=== PATIENT | female | born 1970 | race Caucasian/White ===

== ENCOUNTER 2021-10-06 18:55 | Emergency (ER) | payer MEDICARE, OTHER ==
[~2021-10-06 18:55] MED LIST: ALDACTONE100 MG PO; GLUCOTROL 10 MG10 MG PO; KEPPRA 500 MG500 MG PO; PROZAC20 MG PO; TRAZODONE HCL100 MG PO
[2021-10-06 21:26] LABS: HEMOGLOBIN 14.2 gm/dl (12.3-15.3); RED BLOOD COUNT 4.79 M/UL (4.00-5.10); WHITE BLOOD COUNT 11.1 K/UL (4.5-11.0)
[2021-10-06 21:54] LABS: BUN/CREATININE RATIO 23 (0-10)
[2021-10-06] MEDS ORDERED: PHENERGAN 25 MG25 M1 PO (22:49)
[2021-10-06] MEDS ORDERED: CYCLOBENZAPRIN7.5 MG PO (22:49)
== END 2021-10-06 23:30 | disposition home or self-care (01) ==
LOC: ER1 18:55
PROVIDERS: Student in an Organized Health Care Education/Training Program
DX: R07.9 Chest pain, unspecified (principal); M25.511 Pain in right shoulder; E11.9 Type 2 diabetes mellitus without complications
CPT/HCPCS: 71045; 72040; 73030; 80053; 82550; 82553; 84484; 85025; 85379; 93005; 96374; 96375; 99285; J1885; J2405